=== PATIENT | male | born 1985 | race African-American/Black ===

== ENCOUNTER → 2018-01-18 10:50 | Outpatient (REF) | payer OTHER, SELFPAY ==
[2018-01-18 14:01] LABS: Basophils % 0.9 % (0.1-2.0); Eosinophils # 0.2 K/mm3 (0.0-0.4); Eosinophils % 6.3 % (0.1-12.0); Hematocrit 44.6 % (42.0-52.0); Hemoglobin 15.2 g/dL (14.1-18.0); Lymphocytes # 1.9 K/mm3 (0.7-4.5); Lymphocytes % 51.3 K/mm3 (10-50); Mean Corpuscular HGB Conc 34.1 g/dL (31.8-35.4); Mean Corpuscular Hemoglobin 30.9 pg (27.0-31.2); Mean Corpuscular Volume 90.5 fl (80-94); Mean Platelet Volume 7.6 fl (7.4-10.4); Monocytes # 0.5 K/mm3 (0.1-1.0); Monocytes % 13.9 % (1.7-9.3); Neutrophils % 27.6 % (37.0-80.0); Platelet Count 298 K/mm3 (142-424); Red Blood Count 4.93 M/mm3 (4.60-6.20); Red Cell Distribution Width 12.7 % (11.5-17.5); White Blood Count 3.6 K/mm3 (4.8-10.8)
[2018-01-18 14:04] LABS: MANUAL DIFFERENTIAL MANUAL DIFFERENTIAL (MANUAL DIFF)
[2018-01-18 14:09] LABS: Amphetamine/Metha Screen,Urine Negative ng/mL (<1000); Barbiturates Screen,Urine Negative ng/mL (<200); Benzodiazepines Screen,Urine Negative ng/mL (200); Cannabinoid Screen,Urine Positive ng/mL (<50); Cocaine Screen,Urine Positive ng/g (<300); Methadone Screen,Urine Negative ng/mL (<300); Opiate Screen,Urine Negative ng/mL (<300); Phencyclidine Screen,Urine Negative ng/mL (<25)
[2018-01-18 14:29] LABS: Eosinophils % 5 % (0-3); Lymphocytes % 55 % (10-50); Monocytes % 11 % (2-9); Neutrophils % 29 % (42-76); Total Cells Counted 100
[2018-01-18 14:30] LABS: Platelet Estimate Normal; RBC Morphology Normal
[2018-01-18 15:19] LABS: Erythrocyte Sedimentation Rate 0 mm/hr (0-15)
[2018-01-18 15:47] LABS: Alanine Aminotransferase 31 U/L (12-78); Albumin Level 3.9 gm/dL (3.4-5.0); Albumin/Globulin Ratio 1.3 (1.1-1.8); Alkaline Phosphatase 100 U/L (46-116); Anion Gap 11.6 mEq/L (5-15); Aspartate Amino Transferase 26 U/L (15-37); Bilirubin,Total 0.3 mg/dL (0.2-1.0); Blood Urea Nitrogen 24 mg/dL (7-18); Calcium 8.9 mg/dL (8.5-10.1); Carbon Dioxide 28 mmol/L (21.0-32.0); Chloride 105 mmol/L (98-107); Creatinine,Serum 1.58 mg/dL (0.70-1.30); Estimated Glomerular Filt Rate 50 ml/min (>60); Free T4 (Free Thyroxine) 0.97 ng/dl (0.76-1.46); GFR (African American) 61 ML/MIN (>60); Globulin 3.1 gm/dl (1.3-3.2); Glucose 87 mg/dL (74-106); Potassium 3.6 mmoL/L (3.5-5.1); Sodium 141 mmol/L (136-145)
[2018-01-19 07:19] LABS: Hep A Ab, IgM Negative (Negative); Hepatitis B Core Antibody IgM Negative (Negative); Hepatitis B Surface Antigen Negative (Negative)
[2018-01-19 11:54] LABS: Hepatitis C Antibody <0.1 s/co ratio (0.0-0.9); Vitamin D 25 Hydroxy 38.5 ng/mL (30.0-100.0)
== END ==
LOC: LAB 10:50
PROVIDERS: Visit Provider Emergency Medicine
DX: Z79.899 Other long term (current) drug therapy (principal); R53.83 Other fatigue
CPT/HCPCS: 80053; 80074; 80305; 82652; 84439; 84443; 85007; 85025; 85651

== ENCOUNTER → 2018-04-14 11:24 | Outpatient (CLI) | payer OTHER, SELFPAY ==
[2018-04-14 19:50] LABS: Amphetamine/Metha Screen,Urine Negative ng/mL (<1000); Barbiturates Screen,Urine Negative ng/mL (<200); Benzodiazepines Screen,Urine Negative ng/mL (200); Cannabinoid Screen,Urine Positive ng/mL (<50); Cocaine Screen,Urine Negative ng/g (<300); Methadone Screen,Urine Negative ng/mL (<300); Opiate Screen,Urine Negative ng/mL (<300); Phencyclidine Screen,Urine Negative ng/mL (<25)
== END ==
PROVIDERS: Visit Provider Emergency Medicine
DX: Z79.899 Other long term (current) drug therapy (principal)
CPT/HCPCS: 80305

== ENCOUNTER → 2019-01-30 12:05 | Outpatient (CLI) | payer OTHER, SELFPAY ==
--- NOTE | 2019-01-30 12:09 | XR_ITS ---
XR wrist RT min 3V HISTORY ITS.REASON: pain ORDERING PHYSICIAN: Landy Koch PATIENT AGE: 33 years Comparison: None FINDINGS: No fracture or dislocation. No lytic or blastic change. There is normal mineralization.. The joint spaces are well-preserved. No significant degenerative/arthritic changes. No erosive changes evident.. IMPRESSION: Negative wrist
--- NOTE | 2019-01-30 12:09 | XR_ITS ---
XR hand RT min 3V HISTORY: ITS.REASON: pain ORDERING PHYSICIAN: Landy Koch PATIENT AGE: 33 years COMPARISON: 09/19/2013 FINDINGS: There is an old healed fracture of the midshaft of the fifth carpal. A lucency is noted at the articular surface of the fifth metacarpal distally along the ulnar aspect and is probably related to prior pin placement through this region. No acute fracture or dislocation. No lytic or blastic changes. IMPRESSION: 1. No acute finding. 2. Old fifth metacarpal fracture with a well-circumscribed lucency at the articular surface ulnar aspect of the distal aspect of the fifth metacarpal probably related to prior hardware placement
== END ==
PROVIDERS: PCP Emergency Medicine; Visit Provider Nurse Practitioner Family
DX: M25.531 Pain in right wrist (principal); M79.641 Pain in right hand
CPT/HCPCS: 73110; 73130

== ENCOUNTER → 2019-03-12 14:29 | Outpatient (POV) | payer OTHER, SELFPAY | PROVIDERS: Visit Provider Specialist | DX: M79.641 Pain in right hand (principal); M25.531 Pain in right wrist | CPT/HCPCS: 95886; 95908 ==

== ENCOUNTER → 2020-09-15 09:56 | Outpatient (CLI) | payer OTHER, SELFPAY ==
--- NOTE | 2020-09-15 09:57 | MR_ITS ---
PROCEDURE: MR HEAD/BRAIN WO/W CON CLINICAL INDICATION: seizures pt has eplipsy. had a seizure x4wks ago but had not had one in 4yrs. COMPARISON: CT HDWO CT HEAD W/O CONTRAST from 10/16/2014 TECHNIQUE: Routine multiplanar multi echo sequences are performed without and with gadolinium enhancement FINDINGS: No midline shift, mass effect, intracranial hemorrhage, or hydrocephalus is evident. The cerebellopontine angles, cerebellum, and brainstem have an unremarkable appearance. No enhancing lesions. No evidence of acute infarction. Susceptibility artifact noted in the right parietal area of unknown etiology. The hippocampal gyri are unremarkable in the temporal horns are symmetric a nonspecific T2 hyperintensity is present in the left subinsular region anteriorly within the white matter nonspecific. This does not demonstrate contrast enhancement or restricted diffusion and may be due to small ischemic gliotic focus. There is mucosal thickening of the ethmoid and right maxillary sinus with opacification of the frontal ethmoid air cells medially. The pituitary optic chiasm and corpus callosum have an unremarkable appearance as does the cranial cervical junction. IMPRESSION: 1. No acute intracranial findings. 2. Nonspecific small T2 hyperintensity in the white matter at the of the left subinsular region anteriorly possibly due to small gliotic focus. 3. Mild sinus disease Dictated by: Josef Barker MD 09/16/2020 11:47 Josef Barker MD in [place] 09/16/2020 11:47
== END ==
PROVIDERS: PCP Nurse Practitioner Family; Visit Provider Specialist
DX: R56.9 Unspecified convulsions (principal)
CPT/HCPCS: 70553; A9576

== ENCOUNTER → 2020-12-27 07:46 | Outpatient (CLI) | payer OTHER, SELFPAY ==
[2020-12-27 08:28] LABS: Basophils # 0.1 K/mm3 (0-0.2); Basophils % 1.6 % (0.1-2.0); Eosinophils # 0.2 K/mm3 (0.0-0.4); Hematocrit 47.6 % (42.0-52.0); Hemoglobin 15.9 g/dL (14.1-18.0); Lymphocytes # 1.6 K/mm3 (0.7-4.5); Lymphocytes % 43.5 % (10-50); Mean Corpuscular HGB Conc 33.3 g/dL (31.8-35.4); Mean Corpuscular Volume 93.1 fl (80-94); Mean Platelet Volume 7.8 fl (7.4-10.4); Monocytes # 0.3 K/mm3 (0.1-1.0); Monocytes % 7.8 % (1.7-9.3); Neutrophils # 1.6 K/mm3 (1.8-7.8); Neutrophils % 43.1 % (37.0-80.0); Platelet Count 259 K/mm3 (142-424); Red Blood Count 5.11 M/mm3 (4.60-6.20); Red Cell Distribution Width 13.5 % (11.5-17.5); White Blood Count 3.7 K/mm3 (4.8-10.8)
[2020-12-27 10:00] LABS: Alanine Aminotransferase 19 U/L (12-78); Albumin/Globulin Ratio 1.4 (1.1-1.8); Alkaline Phosphatase 64 U/L (38-126); Anion Gap 8.7 mEq/L (5-15); Aspartate Amino Transferase 32 U/L (17-59); Bilirubin,Total 0.5 mg/dl (0.2-1.3); Blood Urea Nitrogen 16 mg/dl (9-20); Calcium 9.3 mg/dl (8.4-10.2); Carbon Dioxide 29 mmol/L (22.0-30.0); Chloride 106 mmol/L (98-107); Estimated Glomerular Filt Rate 62 ml/min (>60); GFR (African American) 75 ML/MIN (>60); Globulin 2.9 g/dL (1.3-3.2); Glucose 99 mg/dl (74-100); Potassium 4.7 mmoL/L (3.5-5.1); Sodium 139 mmol/L (136-145); Total Protein,Serum 6.9 g/dl (6.3-8.2)
[2020-12-27 10:05] LABS: Valproic Acid, (Depakene) 49.6 ug/ml (50-100)
[2020-12-27 10:12] LABS: Intact Parathyroid Hormone 38.1 pg/mL (7.5-53.5)
== END ==
PROVIDERS: Visit Provider Specialist
DX: G40.909 Epilepsy, unspecified, not intractable, without status epilepticus (principal); R56.9 Unspecified convulsions; R93.0 Abnormal findings on diagnostic imaging of skull and head, not elsewhere classified
CPT/HCPCS: 36415; 80053; 80164; 82330; 83970; 85025

== ENCOUNTER → 2021-10-12 17:18 | Outpatient (CLI) | payer OTHER, SELFPAY ==
--- NOTE | 2021-10-12 17:28 | XR_ITS ---
PROCEDURE INFORMATION: Exam: XR Left Wrist Exam date and time: 10/12/2021 5:28 PM Age: 36 years old Clinical indication: Pain; Wrist; Left; Additional info: Left wrist pain. Wrist pain since playing basketball x2wks ago. Ulnar sided wrist pain. TECHNIQUE: Imaging protocol: XR Left wrist. Views: 3 or more views. COMPARISON: CR [id number] 11/12/2015 9:35 AM FINDINGS: Bones/joints: There is no evidence of acute cortical disruption or dislocation. Soft tissues: Normal. IMPRESSION: No acute findings.
== END ==
PROVIDERS: PCP Internal Medicine Adolescent Medicine; Visit Provider Internal Medicine Adolescent Medicine
DX: M25.532 Pain in left wrist (principal)
CPT/HCPCS: 73110

== ENCOUNTER 2023-01-02 00:59 | Emergency (ER) | payer OTHER, SELFPAY ==
[2023-01-02 01:01] VITALS: BP 142/88; PULSE 89; RESP 18; TEMP 36.8; O2SAT 100; BMI 20.2
--- NOTE | 2023-01-02 01:23 | XR_ITS ---
PROCEDURE INFORMATION: Exam: XR Right Wrist Exam date and time: 01/02/2023 1:19 AM Age: 37 years old Clinical indication: Pain; Wrist; Right; Additional info: Fall TECHNIQUE: Imaging protocol: Radiologic exam of the Right wrist. Views: 3 or more views. COMPARISON: CR [id number] XR wrist RT min 3V 01/30/2019 12:10 PM FINDINGS: Bones/joints: Small osseous density at the dorsum of the wrist raises suspicion for triquetral fracture. No other findings suspicious for fracture seen. No arthritic changes seen. Soft tissues: There is dorsal soft tissue swelling of the wrist. IMPRESSION: Findings suspicious for triquetral fracture
--- NOTE | 2023-01-02 01:23 | XR_ITS ---
PROCEDURE INFORMATION: Exam: XR Right Hand Exam date and time: 01/02/2023 1:22 AM Age: 37 years old Clinical indication: Pain; Hand; Right; Additional info: Fall TECHNIQUE: Imaging protocol: Radiologic exam of the Right hand. Views: 3 or more views. COMPARISON: CR [id number] XR hand RT min 3V 01/30/2019 12:10 PM FINDINGS: Bones/joints: Subtle lucency within dorsal osseous body on the lateral view raises concern for triquetral fracture. No other findings suspicious for fracture seen. No significant arthritic changes seen. Soft tissues: There is dorsal soft tissue swelling of the wrist. IMPRESSION: Findings suspicious for triquetral fracture
[2023-01-02 01:26] VITALS: BMI 20.2
[2023-01-02 02:16] VITALS: BP 140/85; PULSE 80; RESP 16; TEMP 36.8; O2SAT 99
--- NOTE | 2023-01-02 02:26 | HMH.EDGENADL ---
Discharge Plan Disposition Patient Disposition: Home, Self-Care Condition: Fair Prescriptions Prescriptions: New hydrocodone-acetaminophen 5-325 mg tablet 1 tab PO Q8H PRN (Reason: pain) Qty: 10 0RF Referrals Follow up/Referrals: Dago Hill DO [Staff Physician] - See instructions Devaughn Flynn MD [Primary Care Provider] - See instructions Clinical Impressions Clinical Impression: Fracture of triquetral bone of right wrist Instructions Patient Instructions: DI for Wrist Fracture Discharge ED Provider: Ty Britt General Adult HPI General Chief complaint: Extremity Injury, Upper Stated complaint: AO 01/01/231999 injury right wrist Time Seen by Provider: 01/02/23 01:10 Mode of Arrival: Family Vehicle Source of Information: Patient Limitations: No Limitations Description of Symptoms (Recalled from ER Triage Doc. by RN): Pt c/o R wrist & hand pain after falling while skating. States he fell backwards a few times and caught himself with his hand behind him and wrist extended. This occured at 1999 night (01/01). 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 Edema and tenderness noted oveer posterior hand towards posterior wrist. States he had a boxer fx repair on this R hand oin 2013. History of Present Illness HPI narrative: Patient is a 37-year-old male with no pertinent past medical history who presents with right wrist pain. He says that he was skating when he fell a couple of times and he caught himself on an outstretched right hand. He says that around 8:00 he noted that his wrist was very painful with movement. Especially when he brings his arm backward. He denies any numbness or tingling into his extremities. Denies any other injuries. Did not hit his head. Related Data Previous Rx's Medication Instructions Recorded hydrocodone 5 mg-acetaminophen 325 1 tab PO Q8H PRN pain #10 tabs 01/02/23 mg tablet Allergies Allergy/AdvReac Type Severity Reaction Status Date / Time No Known Allergies Allergy Verified 12/17/20 15:11 [facility] Disclaimer: The information contained in this section may have been updated after the patient was seen, as this information can be updated by other users. Social History Smoking Status: Never smoker alcohol intake: current substance use type: denies use current occupational status: employed Travel in the last 8 weeks: None household members: family housing: house ROS Obtained: Yes All systems reviewed & no additional complaints except as documented Physical Exam General General appearance: alert and in no apparent distress Head Head exam: atraumatic, normocephalic and normal inspection Eye Eye exam: Present normal appearance and PERRL ENT ENT exam: Present normal exam, mucous membranes moist and normal external ear exam Neck Neck exam: Present normal inspection and trachea midline Chest Chest inspection: Present normal inspection and symmetric chest wall rise Respiratory Respiratory exam: Present normal lung sounds bilaterally; Absent respiratory distress Cardiovascular Cardiovascular exam: Present regular rate and normal rhythm Abdominal Exam Abdominal exam: Present soft; Absent distention, tenderness or guarding Extremities Exam Extremities exam: Present normal inspection; Absent edema Expanded Upper Extremity Exam Right: Elbow exam: Present normal inspection and full ROM; Absent tenderness Forearm/Wrist exam: Present tenderness; Absent full ROM Hand exam: Present full ROM; Absent tenderness Neurological Exam Neurological exam: Present alert and oriented X3 Psychiatric Psychiatric exam: Present normal affect and normal mood Skin Skin exam: Present warm, dry, intact and normal color Medical Decision Making Medical Records Medical records reviewed: Yes I reviewed the patient's medical records. Thomas Inquiry Pt receiving controlled substance: Yes Thomas was queried for this
== END 2023-01-02 02:22 | disposition home or self-care (01) ==
PROVIDERS: Emergency Provider Student in an Organized Health Care Education/Training Program; PCP Internal Medicine Adolescent Medicine
DX: S62.114A Nondisplaced fracture of triquetrum [cuneiform] bone, right wrist, initial encounter for closed fracture (principal); W19.XXXA Unspecified fall, initial encounter
CPT/HCPCS: 29125; 73110; 73130; 99284

== ENCOUNTER → 2023-01-28 09:43 | Outpatient (CLI) | payer OTHER, SELFPAY ==
--- NOTE | 2023-01-28 09:45 | XR_ITS ---
FINAL REPORT CLINICAL HISTORY: right wrist injury, f/u to get cast taken off COMPARISON: 01/02/2023 FINDINGS: RIGHT WRIST Three views of the right wrist were obtained. A cast is present which obscures detail. A dorsal wrist calcification is not as well visualized on today's exam. There is no new bony abnormality. The visualized joint spaces are normally aligned. The joint spaces are intact. The soft tissues are unremarkable. IMPRESSION: Dorsal wrist calcification not as well visualized on today's exam. No new bony abnormality is identified. Reviewed, Interpreted and Dictated by Hakan Jain III, MD Transcribed by Dionne Jones Authenticated and . [facility]
== END ==
LOC: RAD 09:43
PROVIDERS: PCP Internal Medicine Adolescent Medicine; Visit Provider Physician Assistant Surgical
DX: S62.111A Displaced fracture of triquetrum [cuneiform] bone, right wrist, initial encounter for closed fracture (principal)
CPT/HCPCS: 73110

== ENCOUNTER 2023-01-28 10:54 | Outpatient (RCR) | payer OTHER, SELFPAY | END 2023-01-28 12:00 | disposition home or self-care (01) | LOC: OT 10:54 | PROVIDERS: Visit Provider Orthopaedic Surgery | DX: S62.111A Displaced fracture of triquetrum [cuneiform] bone, right wrist, initial encounter for closed fracture (principal) | CPT/HCPCS: 97763 ==

== ENCOUNTER 2025-11-03 13:17 | Emergency (ER) | payer BC, SELFPAY ==
--- OUTSIDE RECORDS SUMMARY | 2025-11-03 13:25 | XMS_ITS | Clinical Summary ---
[facility] Address [address] [place] [address] Care Team Providers Care Title Inspector Name Role Phone Landy Koch APRN Primary Care Provider [phone] Allergies No known active allergies Medications lamoTRIgine (LaMICtal) 100 MG tablet Take 75 mg by mouth Daily. Once daily in morning Active Social History Tobacco Use Types Packs/Day Years Used Date Smoking Tobacco: Never Assessed Abuse Screen Answer Date Recorded Unsafe at Home or Work/School Not on file Feels Threatened by Someone? Not on file 10/2023 Does Anyone Keep You from Co ntacting Others or Doint Things Outside the Home? Not on file 09/01/2023 Physical Sign of Abuse Present Not on file 1 Housing Stability Answer Date Recorded Current Living Arrangements Not on file 08/21 Potentially Unsafe Housing Conditions Not on iwona e 09/01/2023 Family and Community Support Answer Vinicius e Recorded Help with Day-to-Day Activities Not on file 09/01/2023 Lonely or Isolated Not on file 09/01/2023 Employment Answer Date Recorded Do you want help finding or keeping work or a aileen b? Not on file 09/01/2023 Disabilities Answer Date Recorded Concentrating, Remembering, or Making Decisions Difficulty Not on file 09/01/2023 Doing Errands Independently Difficulty Not on fi le 09/01/2023 Education Answer Date Recorded Help with school or training? Not on file Preferred Language Not on file 09/01/2023 Sex and Gender Information Value Date Recorded Sex Assigned at Not on file Legal Sex Male 8:24 AM EDT Gender Identity Not on file Sexual Orientation Not on file Last Filed Vital Signs Vital Sign Reading Time Taken Comments Blood Pressure 116/74 09/05/2020 8:38 AM EDT Pulse 72 09/05/2020 8:38 AM EDT Temperature 36.7 C (98.1 F) 09/05/2020 8:38 AM EDT Respiratory Rate 15 09/05/2020 8:38 AM EDT Oxygen Saturation 100% 09/05/2020 8:45 AM EDT Inhaled Oxygen Concentration - - Weight 70.3 kg (155 lb) 09/05/2020 8:38 AM EDT Height 180 cm (5' 10.87 ) 09/05/2020 8:38 AM EDT Body Mass Index 21.7 09/05/2020 8:38 AM EDT Plan of Treatment Health Maintenance Due Date Last Done Comments ANNUAL PHYSICAL 1983 HEPATITIS C SCREENING 1983 TDAP/TD VACCINES (1 - Tdap) 2002 INFLUENZA VACCINE 06/21/2025 10/28/2016 Pneumococcal Vaccine 0-49 Aged Out No longer eligible based on patient's age to complete this topic Insurance HUMAN Care Teams Title Inspector Relationship Specialty Start Date End Date Landy Koch APRN PCP - General Nurse Practitioner 09/05/20
[2025-11-03 13:29] VITALS: BP 177/100; PULSE 121; RESP 18; TEMP 36.6; O2SAT 98; BMI 19.5
--- NOTE | 2025-11-03 14:05 | ED_ITS ---
Discharge Plan Disposition Patient Disposition: Home, Self-Care Prescriptions Prescriptions: New naproxen 500 mg tablet 500 mg PO Q12H Qty: 14 0RF zinc oxide 10 % cream 1 applic topical DAILY PRN (Reason: skin irritation) Qty: 78 0RF Referrals Follow up/Referrals: Devaughn Flynn MD [Primary Care Provider, Internal Medicine] - See instructions Clinical Impressions Clinical Impression: Rash, Back pain, Chronic lumbar radiculopathy Instructions Patient Instructions: Low Back Pain, DI for Rash Print Language Print Language: Macedonian Discharge ED Provider: Nawaf Kilpatrick General Adult HPI General Chief complaint: Extremity Problem,Nontraumatic Stated complaint: bilateral foot pain w bruising Time Seen by Provider: 11/03/25 13:21 Mode of Arrival: Ambulatory Source of Information: Patient Description of Symptoms (Recalled from ER Triage Doc. by RN): Complaint of lower back pain and numbness of his heels bilaterally for approx 1 week. States it is worse when he sits on the side of the bed. Also complains of skin changes on bilateral ankles for 1 week. History of Present Illness HPI narrative: He works in a factory and wears briefs recently changed his boots due to irritation from the boots. He denies fevers chills nausea or vomiting. He states that his numbness is from his ankle down to his foot as occasionally includes his toes he notes that it is worse when he is seated and gets better when he walks. Denies any trauma to the area he denies icing the area he denies having any prolonged period of outside exposure cold exposure. He has history of seizure but is no longer on any medications for this he is on Vraylar daily for which she has been on over a year and has had no issues. Related Data Previous Rx's ?Medication ?Instructions ?Recorded naproxen 500 mg tablet 500 mg PO Q12H #14 tabs 10/21 03/15 zinc oxide 10 % topical cream 1 applic topical DAILY P RN skin 11/03/25 irritation #78 grams Allergies Allergy/AdvReac Type Severity Reaction Status Date / Time No Known Allergies Allergy Verified 01/28/23 10:39 [facility] Disclaimer: The information contained in this section may have been updated after the patient was seen, as this information can be updated by other users. Social History Smoking Status: Current every day smoker tobacco type: cigars alcohol intake: current alcohol intake frequency: a few times a month substance use type: denies use current occupational status: employed Travel in the last 8 weeks?: None household members: family housing: house Have you lived/traveled outside US in past 30 days?: No Contact w/someone who lives/traveled outside US past 30 days?: No Exposure to someone with infectious disease in past 14 days?: No Do you have a fever (greater than 100.4 F or 38 C)?: No Have you tested positive for COVID-19?: No Exposed to someone with COVID-19 in past 14 days?: No Do you have a sore throat?: No Do you have a cough?: No Do you have any weakness?: No Do you have any diarrhea?: No Are you experiencing any unusual bleeding?: No Do you have any muscle aches/pain?: No Do you have any abdominal pain?: No Are you experiencing loss of taste or smell?: No Other Medical History Have you received the Flu Vaccine for this season: No Have you received the Pneumonia Vaccine: No ROS Obtained: Yes Systems reviewed as appropriate & no additional complaints except as documented Physical Exam General General appearance: alert Head Head exam: atraumatic Eye Eye exam: Present normal appearance ENT ENT exam: Present normal exam Neck Neck exam: Present normal inspection Chest Chest inspection: Present normal inspection Respiratory Respiratory exam: Present other (Saturating appropriately with normal effort on room air) Cardiovascular Cardiovascular exam: Present regular rate and normal rhythm Abdominal Exam Abdominal exam: Present soft Extremities Exam Extremities exam: Present other (Areas of discoloration and hyperpigmentation along anterior ankle without significant excoriation or skin breakdown noted, patient has bilaterally palpable DP pulses and grows hair throughout his lower extremities) Neurological Exam Neurological exam: Present alert, oriented X3 and other (No sensation deficit present on exam and no motor deficit present on exam) Psychiatric Psychiatric exam: Present normal affect and normal mood Skin Skin exam: Present warm and other (As per extremity exam) Medical Decision Making Medical Records Screening: Per USPSTF and CDC recommendations, given the prevalence of disease in our region, it is our hospital?s policy to screen for HIV and viral Hepatitis for all patients aged 18 and over and those with ongoing risk factors. Thomas Inquiry Pt receiving controlled substance: No Vital Signs: 11/03/25 13:29 11/03/25 15:03 11/03/25 15:18 Temperature 97.9 F 0 F L Temperature Source Oral Pulse Rate 110 H 0 L Pulse Rate [Radial] 121 H Respiratory Rate 18 0 L Blood Pressure 125/99 H 00/00 L Blood Pressure [Left Arm] 177/100 H Blood Pressure Mean [Left Arm] 125 Blood Pressure Source [Left Arm] Automatic Cuff Blood Pressure Position [Left Arm] Sitting 02 Sat by Pulse Oximetry 98 99 Oxygen Delivery Method Room Air Room Air Lab Data Lab Results 11/03/25 14:15: WBC 6.4, RBC 5.81, Hgb 18.0, Hct 49.4, MCV 85.0, MCH 31.0, MCHC 36.4 H, RDW 12.5, Plt Count 331, MPV 8.3, Neut % (Auto) 47.0, Lymph % (Auto) 37.3, [place] % (Auto) 9.3, Eos % (Auto) 4.5, Baso % (Auto) 1.4, Neut # (Auto) 3.0, Lymph # (Auto) 2.4, [place] # (Auto) 0.6, Eos # (Auto) 0.3, Baso # (Auto) 0.1, Sodium 136, Potassium 4.0, Chloride 101, Carbon Dioxide 28, Anion Gap 11.0, BUN 23 H, Creatinine 1.30 H, Estimated Creat Clear 66, Estimated GFR 61, Est GFR ( Amer) 73, Glucose 98, Calcium 9.8, Magnesium 2.1, Total Bilirubin 0.9, AST 32, ALT 27, Alkaline Phosphatase 73, Total Protein 9.0 H D, Albumin 5.4 H, G lobulin 3.6 H, Albumin/Globulin Ratio 1.5 11/03/25 14:15 11/03/25 14:15 Orders (Tests/Meds): ORDERS Category Date Time Status CBC w/Auto Diff [Complete Blood Count Auto Diff] Stat Lab 11/03/25 14:15 Completed CMP [Comprehensive Metabolic Panel] Stat Lab 11/03/25 14:15 Completed HIV Combo Stat Lab 11/03/25 14:15 Received Hepatitis C Ab Qual. W/ RFX Stat Lab 11/03/25 14:15 Received Magnesium Stat Lab 11/03/25 14:15 Completed Medical Decision Narrative: Patient does not have significant evidence of cellulitis infection or dangerous skin breakdown on his exam as the skin is intact. Given the distribution I suspect this is irritation from his boots as well as description of itching intermittently and having needed to get new boots due to irritation previously. In terms of his back pain and right-sided numbness in his foot I suspect this is related and positional or secondary to peripheral nerve compression. Prescribed him 2 weeks of an anti-inflammatory advised to follow-up with his PCP for reevaluation of the skin changes in his bilateral ankles as well as to consider physical therapy should he continue having these radicular symptoms. Advise she should return for systemic symptoms or worsening of his neurologic findings or for signs of infeciton in his bilateral lower extremities. Prescribed barrier cream for his lower extremities as well. Laboratory evaluation was reviewed without thrombocytopenia or leukocytosis or anemia with baseline kidney function on his CMP. Critical Care Critical Care Time Critical Care Time: No
[2025-11-03 14:29] LABS: Hematocrit 49.4 % (42.0-52.0); Hemoglobin 18.0 g/dL (14.1-18.0); Immature Granulocytes % 0.5 %; Mean Corpuscular HGB Conc 36.4 g/dL (31.8-35.4); Mean Corpuscular Hemoglobin 31.0 pg (27.0-31.2); Mean Corpuscular Volume 85.0 fl (80-94); Nucleated Red Blood Cells % 0 %; Platelet Count 331 K/mm3 (142-424); Red Blood Count 5.81 M/mm3 (4.60-6.20); Red Cell Distribution Width-SD 38.3 fL; White Blood Count 6.4 K/mm3 (4.8-10.8)
[2025-11-03 14:41] LABS: Albumin Level 5.4 g/dl (3.5-5.0); Chloride 101 mmol/L (98-107); Potassium 4.0 mmoL/L (3.5-5.1); Sodium 136 mmol/L (136-145)
[2025-11-03 14:43] LABS: Alanine Aminotransferase 27 U/L (12-78); Alkaline Phosphatase 73 U/L (38-126); Anion Gap 11.0 mEq/L (5-15); Aspartate Amino Transferase 32 U/L (17-59); Bilirubin,Total 0.9 mg/dl (0.2-1.3); Blood Urea Nitrogen 23 mg/dl (9-20); Carbon Dioxide 28 mmol/L (22.0-30.0); Creatinine Clearance Estimated 66 mL/min (50-200); Creatinine,Serum 1.30 mg/dl (0.66-1.25); Estimated Glomerular Filt Rate 61 ml/min (>60); GFR (African American) 73 ML/MIN (>60)
[2025-11-03 14:44] LABS: Albumin/Globulin Ratio 1.5 (1.1-1.8); Calcium 9.8 mg/dl (8.4-10.2); Globulin 3.6 g/dL (1.3-3.2); Glucose 98 mg/dl (74-100); Magnesium 2.1 mg/dl (1.6-2.3); Total Protein,Serum 9.0 g/dl (6.3-8.2)
[2025-11-03 15:03] VITALS: BP 125/99; PULSE 110; O2SAT 99
[2025-11-03 15:18] VITALS: BP 00/00; PULSE 0; RESP 0; TEMP -17.7; TEMP 0; O2SAT 0
[2025-11-03 16:33] LABS: Hepatitis C Ab Qual. W/ RFX NEGATIVE (Negative)
== END 2025-11-03 15:18 | disposition home or self-care (01) ==
PROVIDERS: Emergency Provider Student in an Organized Health Care Education/Training Program; PCP Internal Medicine Adolescent Medicine
DX: R21 Rash and other nonspecific skin eruption (principal); M54.16 Radiculopathy, lumbar region; F17.290 Nicotine dependence, other tobacco product, uncomplicated
CPT/HCPCS: 80053; 83735; 85025; 86803; 87389; 99283

== ENCOUNTER 2025-11-05 16:55 | Outpatient (CLI) | payer BC, SELFPAY ==
--- NOTE | 2025-11-05 | XR_ITS ---
PROCEDURE INFORMATION: Exam: XR Left Ankle Exam date and time: 11/05/2025 5:23 PM Age: 40 years old Clinical indication: Cellulitis; Left; Vasculitis, bilateral ankle pain TECHNIQUE: Imaging protocol: Radiologic exam of the left ankle. Views: 3 or more views. Total images: 3 COMPARISON: No relevant prior studies available. FINDINGS: Bones/joints: No evidence of acute fracture or dislocation. Soft tissues: Soft tissues are within normal limits. IMPRESSION: No evidence of acute fracture or dislocation.
--- OUTSIDE RECORDS SUMMARY | 2025-11-05 16:59 | XMS_ITS | Clinical Summary ---
Author Organization [facility] Address [address] [place] [address] Care Team Providers Care Gear Tooth Lapping Machine Operator Name Role Phone Landy Kcoh APRN Primary Care Provider [phone] Allergies No known active allergies Medications lamoTRIgine [...] complete this topic Insurance HUMAN Care Teams Gear Tooth Lapping Machine Operator Relationship Specialty Start Date End Date Landy Koch APRN PCP - General Nurse Practitioner 09/05/20
--- NOTE | 2025-11-05 17:32 | XR_ITS ---
PROCEDURE INFORMATION: Exam: XR Right Ankle Exam date and time: 11/05/2025 5:21 PM Age: 40 years old Clinical indication: Cellulitis; Ankle; Right; Additional info: Vasculitis and sandrine ankle pain TECHNIQUE: Imaging protocol: Radiologic exam of the right ankle. Views: 3 or more views. Total images: 3 COMPARISON: No relevant prior studies available. FINDINGS: Bones/joints: No evidence of acute fracture or dislocation. Soft tissues: Soft tissues are within normal limits. IMPRESSION: No evidence of acute fracture or dislocation.
[2025-11-05 17:40] LABS: Hemoglobin A1C 5.4 % (4.0-6.0)
[2025-11-05 17:59] LABS: C-Reactive Protein < 0.3 mg/L (0-4)
[2025-11-05 18:10] LABS: Free Thyroxine Index 3.2 ug/dL (5.93-13.13); T4 (Thyroxine) 9.6 ug/dl (5.53-11.0); Triiodothryronine (T3) Uptake 33 % (23.5-40.5)
[2025-11-05 18:37] LABS: Vitamin B12 > 1000 pg/mL (239-931)
[2025-11-05 19:08] LABS: Thyroid Stimulating Hormone 0.74 uIU/mL (0.465-4.68)
== END 2025-11-05 23:59 | disposition home or self-care (01) ==
PROVIDERS: PCP Internal Medicine Adolescent Medicine; Visit Provider Internal Medicine Adolescent Medicine
DX: I77.6 Arteritis, unspecified (principal); L03.116 Cellulitis of left lower limb; L03.115 Cellulitis of right lower limb; M25.572 Pain in left ankle and joints of left foot; M25.571 Pain in right ankle and joints of right foot
CPT/HCPCS: 36415; 73610; 80074; 82180; 82607; 83036; 84425; 84436; 84443; 84479; 85651; 86140; 86225; 86235